=== PATIENT | male | born 1965 | race Caucasian/White ===

== ENCOUNTER 2018-05-19 18:56 | Observation (INO) | payer OTHER ==
[2018-05-19] MEDS ORDERED: NS 1,000 ML IV ONE ×2 (19:02→19:42)
[2018-05-19] MEDS ORDERED: ACETAMINOPHEN 500 MG TAB PO ONE (19:06)
[2018-05-19 19:21] LABS: PLATELET COUNT 256 10^3/uL (150-400)
[2018-05-19 19:29] LABS: INR 1.06 (0.83-1.16); PROTIME(PATIENT) 13.4 SEC (12.0-15.0)
--- NOTE | 2018-05-19 20:43 | EDPHY ---
General Time Seen by Provider: 05/19/18 19:01 Narrative: CLINICAL IMPRESSION: Influenza, possible MS flare, weakness, inability to walk ASSESSMENT/PLAN: 53-year-old male with past medical history of multiple sclerosis, visiting our area from [place], presents to the emergency department with 2-3 days of myalgias, fevers, chills and increased weakness. Patient arrives tachycardic, hypoxic, and febrile. Sepsis protocol initiated. He was found to have positive influenza a, normal lactate, no leukocytosis, no renal insufficiency or electrolyte imbalance. EKG shows sinus tachycardia with no acute ST or T- wave changes, reviewed with Dr. Clark. Chest x-ray with no acute cardiopulmonary disease or acute infiltrate. Patient received 2 L of IV fluid and oral antipyretic therapy with improvement in his symptoms and ability to move his legs again. Prior to arrival, patient was unable to walk due to weakness. However given his comorbidities and persistent weakness, he will be admitted to the hospital for further evaluation and treatment. Tamiflu initiated in the ED. Case discussed with Dr. Clark and Dr. Post accepts patient for admission. DIFFERENTIAL DX: Differential includes but not limited to MS flare, influenza, influenza like syndrome, other source of infection, trauma, dehydration, electrolyte imbalance ED PROCEDURES: See lab and/or imaging results below ED COURSE: Case discussed with Dr. Clark who also reviewed patient's EKG. Labs reassuring, no leukocytosis, renal insufficiency, electrolyte imbalance, hypoglycemia, hyperglycemia, normal lactate. Blood cultures pending. Influenza a positive. Chest x-ray without acute cardiopulmonary disease. Patient reassessed, feeling much better, able to move his legs but still feels weak. Vital Signs improving although patient is still mildly tachycardic. Discussed with Dr. Post for admission. CHIEF COMPLAINT: Weakness, sore throat, body aches, fatigue HPI: Very pleasant 53-year-old male with past medical history of multiple sclerosis, visiting from [place], [place] the [place] 4 [place] presents to the emergency department with 2 days of myalgias, fevers, weakness to the point of inability to walk, and sore throat. Patient reports he did get a flu shot this year. He has not documented is fevers at home but reports when he gets a fever he become so weak he cannot walk. He is currently not taking medications for MS. He had a ground level fall after a seizure 3 weeks ago injuring his left hip but was evaluated in his home country with normal x-rays and has been ambulating with a walker. He has been unable to ambulate today even with a walker due to weakness. He has been treating his fever with Tylenol on aspirin. He is taking tramadol for hip pain as well as Keppra 500 mg twice daily for seizures. His last MRI was 3 weeks ago reportedly normal. He has no underlying cardiopulmonary disease. He reports a mild cough. No history of aspiration or pneumonia. He does not believe he has had to be hospitalized for an MS flare however his reports he has in the past. No reports of UTI symptoms, abdominal pain, nausea or vomiting. He does occasionally have diarrhea which is not new for him. PAST MEDICAL HISTORY: Multiple sclerosis, epilepsy See nurse/triage notes for additional history if applicable Pertinent Past Surgical History: None reported Family History: Reported Social History: , here with his , nonsmoker REVIEW OF SYSTEMS: All other systems negative Constitutional: Positive for fever and chills, and appetite change. Eyes: No discharge, vision change ENT: Positive for sore throat, congestion, denies ear pain. Cardiovascular: No chest pain, no palpitations. Respiratory: Positive for cough, no shortness of breath. Gastrointestinal: No abdominal pain, no vomiting, diarrhea. Genitourinary: No hematuria, dysuria, flank pain, pelvic pain Musculoskeletal: No back pain, joint swelling, joint pain, myalgias. Skin: No rashes, color change. Neurological: No headache, dizziness, positive for weakness. PHYSICAL EXAM: General Appearance: Alert, oriented, appropriate, cooperative, NAD, well hydrated, non-toxic appearing, febrile, tachycardic, hypoxic at 89% on arrival HEENT: TMs are clear bilaterally no perforation or FB, no injection, no evidence of serous or mucopurulent otitis. Oropharynx clear is mild symmetric erythema, no exudates, no tonsillar hypertrophy or asymmetry. Dentition without abnormality. Eyes: PERRLA, no acute vision change, nystagmus, swelling, discharge, pain or photosensitivity. Conjunctiva pink, no pallor or injection Neck: Supple, nontender, no lymphadenopathy, no midline pain, FROM, no meningismus. Respiratory: There are no retractions, lungs are clear to auscultation. Cardiac: Regular rate and rhythm, no murmurs or gallops. Gastrointestinal: Abdomen is soft, nontender, bowel sounds normal, no masses/ hernia, no rigidity, guarding or focal peritoneal findings. Neurological: Alert and oriented x 3, CN 2-12 grossly intact, unable to lift legs off the bed secondary to weakness. No reproducible calf pain erythema or warmth. Skin: Warm, dry, no rashes, no nodules on palpation. Psychiatric: Patient is oriented X 3, there is no agitation. MEDICAL DECISION MAKING: Patient was seen independently. Secondary supervising physician at time of evaluation was Dr. Clark. Diagnosis: Influenza a, dehydration, possible MS flare. New, requires workup Summary: See Assessment and Plan for summary of ED visit Clinical lab tests: ordered / reviewed. Independent visualization of images, tracing, or specimens: Yes. Decision to obtain medical records or history from someone other than the patient: Patient's Review / Summarize previous medical records: None available Discussed patient with another provider: Dr. Clark, Dr. Post Patient Progress: Stable for admission. - Diagnostics Imaging Results: Imaging Impressions Chest X-Ray 05/19/18 19:06 Impression: There is no focal infiltrate. - History Smoking Status: Former smoker - Objective Vital Signs: Initial Vital Signs Temperature (C) 38.9 C H 05/19/18 19:04 Heart Rate 117 H 05/19/18 19:04 Respiratory Rate 18 05/19/18 19:04 Blood Pressure 144/81 H 05/19/18 19:04 O2 Sat (%) 91 L 05/19/18 19:04 O2 Delivery Mode Room Air Allergies/Adverse Reactions: No Known Allergies Allergy (Verified 05/19/18 21:01) Home Medications: Medication Instructions Recorded levETIRAcetam [Keppra 500 mg (*)] 500 mg PO BID 05/19/18 traMADol [Ultram 50 mg (*)] 50 - 100 mg PO Q4 PRN 05/19/18 Laboratory Results: Laboratory Results 05/19/18 19:05 05/19/18 19:05 05/19/18 05/19/18 05/19/18 19:30 19:12 19:05 WBC RBC Hgb Hct MCV MCH MCHC RDW Plt Count MPV Neut % (Auto) Lymph % (Auto) Bath % (Auto) Eos % (Auto) Baso % (Auto) Nucleat RBC Rel Count Absolute Neuts (auto) Absolute Lymphs (auto) Absolute Monos (auto) Absolute Eos (auto) Absolute Basos (auto) Absolute Nucleated RBC Immature Gran % Immature Gran # RBC/WBC/PLT Morphology Platelet Estimate PT 13.4 SEC SEC (12.0-15.0) INR 1.06 (0.83-1.16) APTT 31.8 SEC SEC (23.0-38.0) VBG Lactic Acid 0.9 mmol/L mmol/L (0.7-2.1) Sodium Potassium Chloride Carbon Dioxide Anion Gap BUN Creatinine Estimated GFR Glucose Calcium Total Bilirubin Nasal Influenza A PCR FLU A DETECTED H (NEGATIVE) Nasal Influenza B PCR NEGATIVE FOR FLU B (NEGATIVE) 05/19/18 05/19/18 19:05 19:05 WBC 8.29 10^3/uL 10^3/uL (3.80-9.50) RBC 5.25 10^6/uL 10^6/uL (4.40-6.38) Hgb 15.3 g/dL g/dL (13.7-17.5) Hct 45.3 % % (40.0-51.0) MCV 86.3 fL fL (81.5-99.8) MCH 29.1 pg pg (27.9-34.1) MCHC 33.8 g/dL g/dL (32.4-36.7) RDW 13.6 % % (11.5-15.2) Plt Count 256 10^3/uL 10^3/uL (150-400) MPV 10.7 fL fL (8.7-11.7) Neut % (Auto) 83.3 % H % (39.3-74.2) Lymph % (Auto) 5.7 % L % (15.0-45.0) Bath % (Auto) 9.9 % % (4.5-13.0) Eos % (Auto) 0.1 % L % (0.6-7.6) Baso % (Auto) 0.6 % % (0.3-1.7) Nucleat RBC Rel Count 0.0 % % (0.0-0.2) Absolute Neuts (auto) 6.91 10^3/uL H 10^3/uL (1.70-6.50) Absolute Lymphs (auto) 0.47 10^3/uL L 10^3/uL (1.00-3.00) Absolute Monos (auto) 0.82 10^3/uL H 10^3/uL (0.30-0.80) Absolute Eos (auto) 0.01 10^3/uL L 10^3/uL (0.03-0.40) Absolute Basos (auto) 0.05 10^3/uL 10^3/uL (0.02-0.10) Absolute Nucleated RBC 0.00 10^3/uL 10^3/uL (0-0.01) Immature Gran % 0.4 % % (0.0-1.1) Immature Gran # 0.03 10^3/uL 10^3/uL (0.00-0.10) RBC/WBC/PLT Morphology TNP Platelet Estimate TNP PT INR APTT VBG Lactic Acid Sodium 136 mEq/L mEq/L (135-145) Potassium 4.1 mEq/L mEq/L (3.5-5.2) Chloride 102 mEq/L mEq/L (97-110) Carbon Dioxide 23 mEq/l mEq/l (22-31) Anion Gap 11 mEq/L mEq/L (6-14) BUN 12 mg/dL mg/dL (7-23) Creatinine 0.8 mg/dL mg/dL (0.7-1.3) Estimated GFR > 60 Glucose 103 mg/dL H mg/dL (70-100) Calcium 9.3 mg/dL mg/dL (8.5-10.4) Total Bilirubin 0.5 mg/dL mg/dL (0.1-1.4) Nasal Influenza A PCR Nasal Influenza B PCR Medications Given: Sodium Chloride (Ns) 1,000 mls @ 150 mls/hr IV CONT MARC Stop: 11/15/18 21:44 Last Admin: 05/19/18 22:17 Dose: 1,000 mls Levetiracetam (Keppra) 500 mg PO BID MARC Stop: 11/15/18 21:29 Last Admin: 05/19/18 22:12 Dose: 500 mg Oseltamivir Phosphate (T[facility]) [facility] Stop: 05/24/18 08:01 Last Admin: 05/19/18 22:12 Dose: 75 mg Discontinued Medications Acetaminophen (Tylenol) 500 mg PO EDNOW ONE Stop: 05/19/18 19:07 Last Admin: 05/19/18 19:31 Dose: 500 mg Sodium Chloride (Ns) 1,000 mls @ 0 mls/hr IV EDNOW ONE; Wide Open PRN Reason: Protocol Stop: 05/19/18 19:03 Last Admin: 05/19/18 19:10 Dose: 1,000 mls Sodium Chloride (Ns) 1,000 mls @ 0 mls/hr IV EDNOW ONE; Wide Open PRN Reason: Protocol Stop: 05/19/18 19:43 Last Admin: 05/19/18 19:51 Dose: 1,000 mls Departure - Departure Disposition: [facility] Acute Condition: Serious
--- NOTE | 2018-05-19 21:10 | CPEKG ---
Test Reason : OPEN Blood Pressure : / mmHG Vent. Rate : 105 BPM Atrial Rate : 103 BPM P-R Int : 127 ms QRS Dur : 095 ms QT Int : 336 ms P-R-T Axes : 082 041 041 degrees QTc Int : 445 ms Sinus tachycardia Right atrial enlargement Confirmed by Eladio Clark ([id number]) on 05/19/2018 9:09:46 PM Referred By: Eladio Clark Confirmed By:Eladio Clark
[2018-05-19] MEDS ORDERED: traMADol 50 MG TAB PO PRN (21:26)
[2018-05-19] MEDS ORDERED: ZOLPIDEM TARTRATE 5 MG TAB PO PRN (21:31)
[2018-05-19] MEDS ORDERED: ONDANSETRON 4 MG/2 ML VIAL IVP PRN (21:31)
[2018-05-19] MEDS ORDERED: IBUPROFEN 200 MG TAB PO PRN (21:32)
--- NOTE | 2018-05-19 21:49 | PDGENHP ---
History and Physical History and Physical: CC: Fevers and weakness HISTORY: This patient comes into the ER [facility] with approximately 3 days of high fevers with rigors and sweats, and worsening generalized weakness. He does have a cough but no chest pain or shortness of breath. There are no other new localizing symptoms. In the ER he has been found to be positive for influenza A. Of note he has traveled here from his home in [place] just under a week ago. (original plans to travel back May 25) Importantly this patient has multiple sclerosis with symptoms for 30 years diagnosed 10 years ago. He has ongoing symptoms of chronic generalized weakness , some difficulty walking but does walk and is slow voiding of his bladder but does not require catheterizations for his bladder at this point. With this influenza illness his MS symptoms have increased in magnitude but not changed in terms of localization or other specifics of the symptoms, in other words nothing to suggest really an MS flare per se. Notably he fell recently and bruised his hip, has been using a walker for ambulation since that time. As he comes into [facility] he is unable to get up and ambulate with his walker safely. He did have an MRI with his neurologist in [place] around 2 weeks ago and this shows 1 area of possible mild new activity but overall fairly quiet. In terms of treatment for MS, he has most recently been using Tecfidera, which he has has been working well for him at controlling the MS. However he stopped that just less than 2 weeks ago because of difficulty with GI side effects. He has an appointment with his neurologist in [place] when he returns to start new therapy. ROS: A comprehensive 10 system review revealed no other significant findings PAST MEDICAL HISTORY: MS, moderately advanced with generalized weakness, some degree of gait instability and somewhat slowed urinary voiding not requiring catheters FAMILY MEDICAL HISTORY: He is unaware of any concerning or significant or relevant illness in relatives SOCIAL HISTORY: Lives in [place] here for visit his here at the bedside Works full-time teaching MEDICATIONS: The patients list has been reconciled by our clinical pharmacist in the EMR. I have reviewed the list and ordered appropriate medicines. PHYSICAL EXAMINATION: Vital Signs: Temp 38.9 degrees, pulse 117, respirations 18, normal blood pressure Examination: General: alert, oriented, good mentation, looks very tired and uncomfortable but in no distress Neurologic: Market generalized weakness but no focal weakness, normal speech/ language, normal teacher emotionally impaired Skin: warm, dry, good color, no rash HEENT: normal Neck: no mass or jvd Resps: relaxed Lungs: clear breath sounds Heart: regular, no murmur Abdomen: soft, nondistended, nontender, +BS, no mass Upper Extremities: normal Lower Extremities: no edema, warm No Bleeding or bruising LABORATORY DATA: Nasal swab positive for influenza A Slight elevation of neutrophils otherwise normal CBC Normal lactic acid Normal coagulation studies Unremarkable basic met panel RADIOLOGY STUDIES: I reviewed two view chest x-ray done in the ER with no evidence of pneumonia or other acute abnormalities 12 LEAD EKG: I reviewed tracing in the ER shows sinus tachycardia otherwise unremarkable ASSESSMENT: * Acute influenza a * High fever and tachycardia, SIRS criteria but no current evidence of bacterial infection * Acute worsening of chronic MS symptoms caused by acute viral illness; acute MS flare is not currently suspected * Generalized weakness, gait instability, very high fall risk * High DVT risk particularly with recent travel and upcoming travel overseas * Recent contusion to hip from a fall but has been ambulating with a walker since then PLANS: * Inpatient admission hospital, patient will not be safe to leave the hospital with high fall risk already with a recent fall with contusion * IV hydration * Fever management * Tamiflu * Fall risk precaution * Physical occupational therapy * DVT prophylaxis * Will need to begin early assessment of mobility and safety issues, with discharge planning social work assistance I have reviewed the patient's case in detail with Albert Liz of the ER
[2018-05-19] MEDS: OSELTAMIVIR PHOSPHATE 75 MG CAP PO SCH (22:12)
[2018-05-19] MEDS: levETIRAcetam 500 MG TAB PO SCH (22:12)
[2018-05-19] MEDS: NS 1,000 ML IV SCH ×2 (22:14→22:17)
[2018-05-20] MEDS: ACETAMINOPHEN 325 MG TAB PO PRN ×2 (03:04→09:13)
[2018-05-20 08:27] VITALS: BP 132/80
[2018-05-20] MEDS ORDERED: ENOXAPARIN 40 MG/0.4 ML SYR SC SCH (09:00)
[2018-05-20] MEDS: OSELTAMIVIR PHOSPHATE 75 MG CAP PO SCH (09:13)
[2018-05-20] MEDS: levETIRAcetam 500 MG TAB PO SCH (09:14)
--- NOTE | 2018-05-20 11:36 | ASDISCHSUM ---
Discharge Information Plan Status:Home with No Needs Medically Cleared to Leave: Discharge Date: D/C Disposition:Home, Routine, Self-Care ADT D/C Disposition:Home, Routine, Self-Care Projected Discharge Date:05/20/2018 12:00 AM Transportation at D/C: Discharge Delay Reason: Follow-Up Date:05/20/2018 12:00 AM Discharge Slot: Final Diagnosis: Placement Information Patient Contact Information Contact Name:CHAIM Relationship: Address:[address] [place] [address] Work Phone: City:[place] [facility] Phone: State/Zip Code:[place] [address] Email: Financial Information Financial Class:HMO and PPO Plans Primary Plan Desc:FOREIGN SERVICE BENEFIT PLAN Primary Plan Number:[id number] Secondary Plan Desc: Secondary Plan Number: Assessment Information Case Management Discharge Plan Note Case Management Discharge Discharge Order Complete? Answers: Yes Patient to Obtain Answers: Independently Medications Discharge Comments Notes: Pt is getting discharged independently, discussed plan with RN. Pt is visiting from [place]. No concerns noted. Date Signed: 05/20/2018 11:35 AM Electronically Signed By:TIANA Mojica Intervention Information
--- NOTE | 2018-05-20 11:36 | ASMTLACE ---
LACE Length of stay for Answers: Less than 1 day current admission Acuity / Level of Answers: Yes Care: Did the patient have an inpatient admission? Comorbidities - select Answers: Other Notes: MS all that apply # of Emergency department Answers: 0 visits in the last 6 months Score: 4 Date Signed: 05/20/2018 11:36 AM Electronically Signed By:TIANA Mojica
[2018-05-20] MEDS: NS 1,000 ML IV SCH (12:11)
--- NOTE | 2018-05-20 14:06 | GDS ---
[f rep st] DISCHARGE SUMMARY DISCHARGE DIAGNOSES: 1. Acute influenza A. 2. Acute multiple sclerosis symptoms. 3. Generalized weakness. PHYSICAL EXAMINATION: GENERAL: The patient is alert. VITAL SIGNS: Afebrile at 37. Pulse is 104, respiratory rate is 18, blood pressure is 132/80, saturating 96% on room air. I have seen and evalua breann the patient on the day of discharge. HOSPITAL COURSE: The patient is a 53-year-old male who presented to the emergency room with complain ts of 3 days of high fevers and feeling ill. He was evaluated and diagnosed with: 1. Influenza A. During this hospitalization, he was started on Tamiflu. His symptoms have improved , however are still present. He wishes to be discharged to go [place] [facility] and [facility] to manage his condition in the outpatient setting. 2. Acute worsening of his chronic MS. This is the setting of acute viral infection. The patient ca n ambulate independently and has significant support and assistance. 3. Generalized weakness. Again, setting of acute infection and MS. Continue progressive therapy. 4. Dehydration. He did receive IV hydration during this hospitalization. DISPOSITION: The patient will be discharged independently with support. There are no pending studie s. DISCHARGE MEDICATIONS: Please refer to EMR form. I have not provided any prescriptions other than T amiflu for the patient at the time of disposition. Followup will be as needed. I instructed the rasta weston to return to the emergency room if his symptoms become worse or he is unable to tolerate oral in take. He is in agreement with this plan. /[id number]/MODL
[2018-05-20] MEDS ORDERED: MELATONIN 3 MG TAB PO SCH (21:00)
== END 2018-05-20 14:16 | disposition home or self-care (01) ==
LOC: INTOOBSV 20:46 → F3N 21:35
PROVIDERS: ADMIT Internal Medicine; ATTEND Family Medicine
DX: J11.1 Influenza due to unidentified influenza virus with other respiratory manifestations (principal); G35 Multiple sclerosis
CPT/HCPCS: 71046; 93005; 97162; 97166; 97530; G0378; J1650; J2405